=== PATIENT | male | born 1990 | race Caucasian/White ===

== ENCOUNTER 2021-06-10 19:07 | Emergency (ER) | payer OTHER, SELFPAY ==
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
[2021-06-10 19:15] VITALS: BP 152/103; PULSE 116; RESP 18; TEMP 36.6; O2SAT 99
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
[2021-06-10 19:57] VITALS: BP 150/90
== END 2021-06-10 20:08 | disposition home or self-care (01) ==
PROVIDERS: Emergency Provider Registered Nurse; PCP Physician Assistant
DX: R07.89 Other chest pain (principal); S29.012A Strain of muscle and tendon of back wall of thorax, initial encounter; V47.5XXA Car driver injured in collision with fixed or stationary object in traffic accident, initial encounter; Z86.16 Personal history of COVID-19
CPT/HCPCS: 71046; 72072; 99214; G0463